=== PATIENT | male | born 1980 | race Caucasian/White ===

== ENCOUNTER 2017-07-13 07:04 | Day surgery (SDC) | payer SELFPAY ==
[~2017-07-13 07:04] MED LIST: Lactated Ringers 1,000 ML IV SCH
[2017-07-13] MEDS ORDERED: Lidocaine 2% 5 ML SDV ONE (07:07)
[2017-07-13] MEDS ORDERED: Propofol 200 MG/20 ML SDV ONE ×2 (07:07→09:16)
[2017-07-13] MEDS ORDERED: Midazolam 1 MG/ML 2 ML SDV ONE (07:07)
[2017-07-13] MEDS ORDERED: fentaNYL 250 MCG/5 ML SDV ONE (07:07)
[2017-07-13] MEDS ORDERED: Ondansetron 4 MG/2 ML SDV ONE (07:08)
[2017-07-13] MEDS ORDERED: Succinylcholine 200 MG/10 ML MDV ONE (07:08)
[2017-07-13] MEDS ORDERED: Bupivacaine 25%/EPINEPHrine/PF 30 ML ONE (07:09)
[2017-07-13] MEDS ORDERED: Bupivacaine 0.5% 30 ML SDV ONE (07:09)
[2017-07-13] MEDS ORDERED: fentaNYL 100 MCG/2 ML SDV ONE (07:19)
[2017-07-13] MEDS ORDERED: Lidocaine 1% 20 ML MDV ONE (07:44)
[2017-07-13] MEDS ORDERED: Acetaminophen/HYDROcodone 325-10 MG Tab PO PRN (08:00)
[2017-07-13] MEDS ORDERED: Ketorolac 10 MG Tab PO PRN (08:00)
[2017-07-13] MEDS ORDERED: ceFAZolin 2 GM in Premix Bag 1 BAG IV SCH (08:00)
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
--- NOTE | 2017-07-13 09:14 | PCM.SN ---
- Free Text/Narrative Note: After discussing interscalene block, the left side of neck was prepped with betadine swabs x 3. Sterile technique. Sedated with versed 2mg and fentanyl 50 micrograms. Stimuplex needle set at 0.8 Strong twitch obtained at about 1.25 cm with paresthesia radiating to left thumb with twitch diminishing but still present at 0.4. Withdrew about .25 cm . improved. Instilled 40 ml of 1 to 1 mixture of 0.5% marcaine and 0.25% marcaine with 1:200k eppi. arm is heavy sensation diminished in left shoulder.
[2017-07-13] MEDS ORDERED: Phenylephrine/Normal Saline 100 MCG/ML 10 ML Syringe ONE (09:23)
[2017-07-13] MEDS ORDERED: ePHEDrine 50 MG/ML SDV ONE (09:39)
--- NOTE | 2017-07-13 09:57 | PCM.OPNOTE ---
- General Post-Op/Procedure Note Date of Surgery/Procedure: 07/13/17 Operative Procedure(s): L shoulder scope with SAD, debridement of anterior labrum and DCE Anesthesia Technique: General ET Tube, Regional Block Primary Surgeon: Aparna Monet Certified Addiction Counselor: Xochitl Saleh Certified Addiction Counselor: Primo Moss in mLs: 10 Condition: Good Free Text/Narrative:: #[id number]
[2017-07-13] MEDS: fentaNYL 100 MCG/2 ML SDV IVPUSH PRN ×2 (10:16→10:21)
[2017-07-13] MEDS ORDERED: HYDROmorphone 2 MG/ML SDV ONE (10:40)
[2017-07-13] MEDS: HYDROmorphone 2 MG/ML Syringe IVPUSH ONE ×2 (10:42→10:50)
--- NOTE | 2017-07-13 11:07 | PCM.POSTAN ---
POST ANESTHESIA ASSESSMENT - MENTAL STATUS Mental Status: Alert, Oriented - VITAL SIGNS Pulse Rate: 93 SaO2: 96 (2 lpm supplemental nc) Resp Rate: 11 Blood Pressure: 140/84 - RESPIRATORY Respiratory Status: Respiratory Rate WNL, Airway Patent, O2 Saturation Stable, Supplemental Oxygen - CARDIOVASCULAR CV Status: Pulse Rate WNL, Blood Pressure Stable - GASTROINTESTINAL GI Status: No Symptoms - PAIN Pain Score: 6 Free Text/Narrative:: Rates pain at a 6 bu. med with fentanyl 100ug and dilaudid 2mg - POST OP HYDRATION Hydration Status: Adequate & Stable
--- NOTE | 2017-07-13 12:29 | OR ---
SURGEON: Aparna Monet MD DATE OF PROCEDURE: 07/13/2017 PREOPERATIVE DIAGNOSES: 1. Left shoulder impingement syndrome. 2. 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 POSTOPERATIVE DIAGNOSES: 1. Left shoulder impingement syndrome. 2. 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 3. Degenerative anterior labral tear. PROCEDURES: Left shoulder arthroscopy with. 1. Subacromial decompression with release of coracoacromial ligament and acromioplasty. 2. Limited synovectomy including debridement of anterior labrum. 3. Arthroscopic distal clavicle excision. MANAGER OF BROADCAST CONTENT: Xochitl Saleh PA-C and Primo Chu MD, PGY2. ANESTHESIA: General with interscalene block. ESTIMATED BLOOD LOSS: 10 mL. TOURNIQUET TIME: 0 minutes. COMPLICATIONS: None. DVT PROPHYLAXIS: PAS boot to bilateral lower extremities. IMPLANTS USED: None. BRIEF HISTORY: Jett is a 37-year-old male who has had complaint of progressive left shoulder pain. An MRI did show degenerative changes at the acromioclavicular joint along with evidence of subacromial bursitis. Due to his lack of response to conservative treatment, I did recommend surgical intervention. The risks and goals of procedure were discussed with the patient and were documented preoperatively. He agreed to proceed. DESCRIPTION OF PROCEDURE: Patient was properly identified and brought to the operating room. He was transferred from the OR cart and placed on the operating table in supine position. General anesthesia was administered. After adequate anesthesia was obtained, the patient was placed into a beach-chair type position. Care was taken to pad all bony prominences. His head was secured. An interscalene block had been administered preoperatively. The left upper extremity was then prepped in standard fashion using ChloraPrep solution. It was then sterilely draped. A time-out was performed to ensure correct site and procedure. Preoperative antibiotics were given. The surgical site had been marked preoperatively. A marking pen was used to identify the bony landmarks. Approximately 30 mL of normal saline was introduced into the glenohumeral joint. A posterior portal was established. Blunt trocar and cannula were introduced into the glenohumeral joint. Camera, inflow, and outflow were assembled. The rotator interval was visualized. Mild synovitis was noted. An anterior portal was then established. The subscapularis was visualized and probed and found to be intact. The subscapular recess showed no evidence of loose bodies. The biceps was visualized. Its attachment to the labrum was probed and was found to be intact. The biceps was pulled into the joint to examine the biceps distally and no synovitis or tearing was noted. The anterior labrum was then inspected. Minor degenerative fraying was noted, which was resected with a shaver. The labrum appeared stable. Posterior labrum was also intact. Both the humeral head and glenohumeral joint showed no evidence of degenerative changes. I then extended into the axillary pouch. No loose bodies were identified. No synovitis was noted. The arm was then brought into an abducted and externally rotated position. The bare area was noted posteriorly and the cuff insertion was intact. As I progressed anteriorly, there was no articular-sided tearing of the rotator cuff and it appeared completely intact. The arm was then brought back into a neutral position. Instruments were removed from the glenohumeral joint. Blunt trocar and cannula were introduced into the subacromial space. Camera, inflow, and outflow were assembled. A lateral portal was established. He had extensive hemorrhagic bursitis, which was resected with a combination of the shaver and electrocautery. The undersurface of the acromion was visualized and cleared of soft tissue. The coracoacromial ligament was released anteriorly. He had a large downsloping acromion and an acromioplasty was performed, which provided good decompression of the subacromial space. Following the bursectomy, the rotator cuff was inspected. It was found to be intact. It was probed and no softening was noted. We then turned our attention to the distal clavicle. It was cleared of soft tissue. A 5.0 mm josi was used to perform excision of the distal clavicle. Approximately 8 mm of distal clavicle was removed. Care was taken to keep the superior capsule intact. The instruments were then removed from the shoulder. The portal sites were closed with 3-0 nylon. Xeroform gauze was placed over the wound and a bulky dressing was applied. He was placed into a sling. He was awakened from his anesthetic and transferred back to the operating room cart. He was brought to recovery room in stable condition. All needle and sponge counts were correct. ARMAND / ASHISHL /[id number]
== END 2017-07-13 13:00 | disposition home or self-care (01) ==
LOC: MW.SDS 07:04
PROVIDERS: ATTEND Orthopaedic Surgery
DX: M75.42 Impingement syndrome of left shoulder (principal); M19.012 Primary osteoarthritis, left shoulder; S43.402A Unspecified sprain of left shoulder joint, initial encounter; M75.52 Bursitis of left shoulder; E66.9 Obesity, unspecified; Z88.5 Allergy status to narcotic agent; Z88.8 Allergy status to other drugs, medicaments and biological substances; X58.XXXA Exposure to other specified factors, initial encounter
CPT/HCPCS: 29824; 29826; A9270; J0330; J1170; J2250; J2405; J3010; J7120; J2704